=== PATIENT | male | born 1940 | race Caucasian/White ===

== ENCOUNTER 2017-12-22 14:29 | Inpatient (IN) | payer OTHER ==
[~2017-12-22] VITALS: Ht 180.3 cm; Wt 55.0 kg
[~2017-12-22 14:29] MED LIST: ASPIRIN EC81 M1 PO; Benadryl PO; LIPITOR40 M1 PO; PLAVIX 75MG TAB75 MG PO; VALIUM5 M1 PO; VICODIN 500 MG-1 TAB PO
--- NOTE | 2017-12-22 16:12 | RADIOLOGY REPORT ---
EXAMINATION: XR CHEST CLINICAL INFORMATION: Cough and fever. Shortness of breath. COMPARISON: Chest x-ray 02/23/2017, 2017. CT chest 11/03/2017, 04/11/2017 TECHNIQUE: 2 views of the chest were obtained. FINDINGS: There is severe emphysematous changes of lung. There is chronic scarring with deformity of the parenchyma likely at the left upper lobe and left lower lobe similar prior studies. There is a geographic area of patchy increased opacity in the right mid and lower lung new since prior exam consistent with an acute infiltrate. There is a small right pleural effusion blunting the posterior costophrenic angle. There is chronic blunting of the posterior lateral left costophrenic angle IMPRESSION: 1. Severe emphysematous changes of lung. 2. Acute patchy infiltrate in the right mid and lower lung. 3. Small right pleural effusion.
[2017-12-22 16:57] LABS: ABSOLUTE BASOPHIL COUNT 0.1 /CUMM (0.0-0.2); ABSOLUTE EOSINOPHIL COUNT 0.2 /CUMM (0.0-0.7); ABSOLUTE GRANULOCYTE CT 9.3 /CUMM (1.4-6.5); ABSOLUTE LYMPH COUNT 1.2 /CUMM (1.2-3.4); ABSOLUTE MONOCYTE COUNT 0.3 /CUMM (0.10-0.60); BASOPHIL % 0.6 % (0.0-2.0); EOSINOPHIL % 1.9 % (0-5); GRANULOCYTE % 83.5 % (42.2-75.2); HEMATOCRIT 46.7 % (42-52); MEAN CORPUSCULAR HGB 29.9 PG (27.0-31.0); MEAN CORPUSCULAR HGB CONC 32.9 G/DL (33.0-37.0); MEAN PLATELET VOLUME 7.9 FL (7.4-10.4); PLATELET COUNT 480 /CUMM (130-400); RBC DISTRIBUTION WIDTH 13.4 % (11.5-14.5); RED BLOOD CELL CT 5.13 /CUMM (4.70-6.10); WHITE BLOOD CELL COUNT 11.2 /CUMM (4.8-10.8)
--- NOTE | 2017-12-22 17:04 | ED DYSPNEA/ASTHMA COMPLAINT ---
History of Present Illness General Chief Complaint: General Adult Stated Complaint: SOB FEVER / flu Source: patient Exam Limitations: no limitations Vital Signs & Intake/Output Vital Signs & Intake/Output Vital Signs Date Time Temp Pulse Resp B/P B/P Pulse O2 O2 Flow FiO2 Mean Ox Delivery Rate 12/23 0652 97.6 65 20 100/52 94 Nasal 1.5L Cannula 12/23 0000 96 Nasal 2.0L Cannula 12/22 2204 97.9 70 20 124/70 96 12/22 2134 96 Nasal 2.0L Cannula 12/22 2112 97.1 73 18 124/80 90 Room Air Room Air 12/22 2004 Nasal 2.0L Cannula 12/22 1749 98.4 20 18 135/84 95 Nasal 2.0L Cannula 12/22 1635 94 Room Air 12/22 1456 98.6 18 18 133/89 94 Room Air ED Intake and Output 12/23 0000 12/22 1200 Intake Total 555 Output Total Balance 555 Intake, IV 75 Intake, Oral 480 Patient 121 lb Weight Weight Bed scale Measurement Method Allergies Coded Allergies: Penicillins (HIVES 08/07/17) Reconcile Medications Acetaminophen/Hydrocodone Bi (Vicodin 500 MG-5 MG) 1 TAB TAB 1 TAB PO Q4-6 PRN PAIN Aspirin E.c. (Ecotrin) 325 MG TAB 1 TAB PO DAILY HEART HEALTH (Reported) Atorvastatin Calcium (Lipitor) 40 MG TABLET 2 TAB PO DAILY CHOLESTEROL ( Reported) [Benadryl] 25 MG TAB 25 MG PO Q6P PRN ITCHING Clopidogrel Bisulfate (Plavix) 75 MG TABLET 1 TAB PO DAILY CARDIAC STENT ( Reported) Diazepam (Valium) 5 MG TABLET 1 TAB PO Q4-6 PRN PRN SPASMS Triage Note: 77 YO MALE TO TRIAGE C/O COUGH AND CHEST CONGESTION WITH YELLOW SPUTUM. HX OF LUNG CANCER, STATES "I ALWAYS HAVE TROUBLE BREATHING" PT +SMOKER. RA SATS 94%. ALCO S/O CHILLS ON/OFF AT HOME, AFEBRILE. MASK APPLIED. FLU SWAB OBTAINED AND SENT Triage Nurses Notes Reviewed? yes Onset: Abrupt Duration: week(s): (2), constant, continues in ED, getting worse Timing: single episode today Severity: moderate, severe Prior Episodes/Possible Cause: occasional episodes HPI: 77 year old male past medical history of coronary artery disease, hyperlipidemia , hypertension, lung cancer and COPD presents for evaluation of cough, congestion, fevers and shortness of breath. Patient states symptoms have been present for 2 weeks getting worse. Cough is productive of yellow sputum worse at night causing difficulty sleeping. He reports shortness of breath on exertion that somewhat improved at rest. He is occurring every day smoker. He denies any chest pain or hemoptysis. He's been using his inhalers without any improvement. He reports subjective signs of fever. No nausea vomiting or diarrhea. (Julio César Garcia) Past History Travel History Traveled to [place] past 21 day No Medical History Any Pertinent Medical History? 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 No (Julio César Garcia) Review of Systems Review of Systems Constitutional: Reports: fever, malaise, weakness. EENTM: Reports: no symptoms. Respiratory: Reports: see HPI, cough, short of breath, sputum production, wheezing. Cardiovascular: Reports: no symptoms. GI: Reports: no symptoms. Genitourinary: Reports: no symptoms. Musculoskeletal: Reports: no symptoms. Skin: Reports: no symptoms. Neurological/Psychological: Reports: no symptoms. Hematologic/Endocrine: Reports: no symptoms. Immunologic/Allergic: Reports: no symptoms. All Other Systems: Reviewed and Negative (Julio César Garcia) Physical Exam Physical Exam General Appearance: no apparent distress, alert, awake, thin Head: atraumatic, normal appearance Eyes: Bilateral: normal appearance, PERRL, EOMI. Ears, Nose, Throat: normal pharynx, normal ENT inspection, hearing grossly normal Neck: normal inspection, supple, full range of motion Respiratory: chest non-tender, no respiratory distress, crackles (rll), rhonchi, wheezing Cardiovascular: regular rate/rhythm, normal peripheral pulses Peripheral Pulses: 2+ radial (R), 2+ radial (L) Gastrointestinal: normal bowel sounds, soft, non-tender, no organomegaly Extremities: normal inspection, normal range of motion, no edema Neurologic/Psych: no motor/sensory deficits, awake, alert, oriented x 3, normal gait Skin: intact, normal color, warm/dry Lymphatic: no anterior cervical melly Core Measures ACS in differential dx? No CVA/TIA Diagnosis No Sepsis Present: No Sepsis Focused Exam Completed? No (Julio César Garcia) Progress Differential Diagnosis: asthma, AMI, bronchitis, CHF, COPD, pulmonary embolism, pneumonia Plan of Care: Orders Procedure Date/time Status Heart Healthy Diet 12/23 B Active CBC WITHOUT DIFFERENTIAL 12/23 06 Active BASIC ELECTROLYTES PLUS BUN&CR 12/23 06 Active Vital Signs 12/22 2122 Active Teach/Educate 12/22 2122 Active Pain Treatment and Response 12/22 2122 Active Nutritional Intake, Monitor 12/22 2122 Active Isolation 12/22 2122 Active Intake & Output 12/22 2122 Active Patient Care Conference 12/22 2122 Active Activity/Ambulation 12/22 2122 Active Add-on Test (ER Only) 12/22 2025 Active RT: Evaluation 12/22 2003 Active LACTIC ACID 12/22 1927 Complete STREP PNEUMO URINARY ANTIGEN 12/22 190 Complete LEGIONELLA URINARY ANTIGEN 12/22 1908 Complete LOWER RESPIRATORY CULTURE 12/22 1908 Active Pathway - chart 12/22 1904 Active TRC EVALUATION (GEN) 12/22 1903 Complete OXYGEN SETUP (GEN) 12/22 1903 Complete Saline Lock 12/22 1903 Active Pathway - chart 12/22 1903 Active House Staff 12/22 1903 Active Patient Data 12/22 1851 Active ED Holding Orders 12/22 1845 Active Admit to inpatient 12/22 1845 Active Vital Signs 12/22 1845 Active Code Status 12/22 1845 Active LACTIC ACID 12/22 1627 Complete D-DIMER 12/22 1627 Complete EKG 12/22 1627 Active Intake & Output 12/22 1624 Active BLOOD CULTURE 12/22 1615 Active URINALYSIS 12/22 1615 Complete TROPONIN LEVEL 12/22 1615 Complete COMPREHENSIVE METABOLIC PANEL 12/22 1615 Complete CBC WITHOUT DIFFERENTIAL 12/22 1615 Complete RAPID VIRAL INFLUENZA A 12/22 1455 Complete THERAPIST ORDERS 12/22 UNK Complete VTE Mechanical Prophylaxis 12/22 UNK Active Current Medications Sig/Nadya Start time Last Medication Dose Stop Time Status Admin Azithromycin 500 MG Q24H 12/23 1700 AC (Zithromax) Sodium Chloride 250 ML (Normal Saline 0.9%) Ceftriaxone Sodium 1,000 MG DAILY@1700 12/23 1700 AC (Rocephin) Aspirin Buffered 325 MG DAILY 12/23 1000 AC (Ecotrin) Atorvastatin Calcium 80 MG DAILY 12/23 1000 AC (Lipitor) Enoxaparin Sodium 40 MG DAILY 12/23 1000 AC (Lovenox) Acetaminophen 1,000 MG Q6 12/22 2359 AC 12/23 (Ofirmev) 0531 Benzocaine/Menthol 1 SYLVIA Q2P PRN 12/22 2215 AC 12/23 (Chloraseptic 0531 Lozenges) Albuterol Sulfate 3 ML TID 12/22 2200 AC (Proventil) Oxycodone/ 2 TAB Q12 PRN 12/22 191 AC Acetaminophen (Percocet) Sodium Chloride 1,000 ML Q13H 12/22 191 AC 12/22 (Normal Saline 0.9%) 12/23 0814 2128 Laboratory Tests 12/23/17 0700: Sodium Pending, Potassium Pending, Chloride Pending, Carbon Dioxide Pending, Anion Gap Pending, BUN Pending, Creatinine Pending, BUN/Creatinine Ratio Pending , CBC w Diff Pending, WBC Pending, RBC Pending, Hgb Pending, Hct Pending, MCV Pending, MCH Pending, MCHC Pending, RDW Pending, Plt Count Pending, MPV Pending 12/22/17 2345: Lactic Acid 0.8 12/22/17 1655: Urine Color YEL, Urine Clarity CLEAR, Urine pH 6.0, Ur Specific [place] >= 1.030 , Urine Protein NEG, Urine Ketones TRACE H, Urine Nitrite NEG, Urine Bilirubin NEG, Urine Urobilinogen 4.0 H, Ur Leukocyte Esterase NEG, Ur Microscopic SEDIMENT EXAMINED, Urine RBC 1-3, Urine WBC RARE, Ur Epithelial Cells FEW, Urine Bacteria RARE H, Hyaline Casts RARE H, Urine Mucus MOD H, Urine Hemoglobin TRACE-INTACT H, Urine Glucose NEG 12/22/17 1630: Lactic Acid 1.4 12/22/17 1630: Anion Gap 15, Estimated GFR > 60, BUN/Creatinine Ratio 31.4 H, Glucose 85, Calcium 9.5, Total Bilirubin 0.6, AST 25, ALT 39, Alkaline Phosphatase 139 H, Troponin I < 0.01, Total Protein 8.2, Albumin 4.0, Globulin 4.2, Albumin/ Globulin Ratio 1.0 L, D-Dimer High Sensitivty 2366 H, CBC w Diff NO MAN DIFF REQ, RBC 5.13, MCV 91.0, MCH 29.9, MCHC 32.9 L, RDW 13.4, MPV 7.9, Gran % 83.5 H, Lymphocytes % 10.9 L, Monocytes % 3.1, Eosinophils % 1.9, Basophils % 0.6, Absolute Granulocytes 9.3 H, Absolute Lymphocytes 1.2, Absolute Monocytes 0.3, Absolute Eosinophils 0.2, Absolute Basophils 0.1 Microbiology 12/23 0600 LOWER RESP: Respiratory Culture - COLB 12/23 06 LOWER RESP: Gram Stain - COLB 12/22 1705 BLOOD: Blood Culture - RECD 12/22 1655 URINE ROUT: Legionella Antigen - COMP 12/22 165 URINE ROUT: Streptococcus pneumoniae Antigen (M - COMP STREP PNEUMO BACTERIAL AG 12/22 1630 BLOOD: Blood Culture - RECD 12/22 1454 NASOPHARYN: Influenza Virus A & B Rapid Smear - COMP Patient seen and evaluated. On exam he is tachypnic min oxygen saturation 94% on room air. He has diffuse wheezing and rhonchi. DuoNeb ordered. We'll check basic labs. Flu swab negative. Additionally a chest x-ray and d-dimer. Chest x-ray shows right lower lobe pneumonia. D-dimer was elevated but CT is negative for PE. Pneumonia is confirmed on CAT scan. He has a mildly elevated white blood cell count. Due to patient's comorbidities that includes lung cancer status post left lobectomy and COPD patient will be admitted for IV antibiotics to pulmonology consult serial lab serial chest x-rays. Case discussed with Dr. Rosas he agrees. Diagnostic Imaging: Viewed by Me: Radiology Read, CT Scan. Discussed w/RAD: Radiology Read, CT Scan. Radiology Impression: PATIENT: SEAN GARCIA PRESENT AGE : 77 PATIENT ACCOUNT NO: [id number] : 41 LOCATION: [facility] ORDERING PHYSICIAN: Julio César CAVAZOS SERVICE DATE: 12/22/17 EXAM TYPE: CAT - CTA CHEST-PULMONARY EMBOLISM EXAMINATION: CT ANGIOGRAM OF THE CHEST WITH AND WITHOUT CONTRAST (CT PULMONARY ANGIOGRAM FOR PE) CLINICAL INFORMATION: COUGH SOB, TACHYPNEA COMPARISON: Chest x-ray today. CT chest 11/03/2017 TECHNIQUE: Prior to contrast administration, noncontrast localization images were obtained. Subsequently, multidetector volumetric imaging was performed from the thoracic inlet to below the diaphragms following the administration of 89 mL Optiray 350 intravenous contrast. No contrast reaction reported. Sagittal, coronal, and MIP oblique sagittal reformatted images were obtained on the CT workstation, uploaded to PACS, and reviewed. Total exam dose-length product 190.37 mGy-cm. FINDINGS: QUALITY OF STUDY/CONTRAST BOLUS: Satisfactory PULMONARY ARTERIES: No central or segmental pulmonary emboli. THORACIC AORTA: No aneurysm or dissection. LUNG: Severe emphysematous changes of lungs. There is a geographic pneumonic infiltrate with air bronchograms in the right lower lobe corresponding to the density seen on the chest x-ray performed today. No infiltrate in the left lung. The central bronchial airways are open. Postsurgical changes from left upper lobe lobectomy is stable. PLEURA: Small dependent right pleural effusion. Chronic scarring and pleural thickening at left lung base. Pleural thickening at the right posterior lateral hemithorax associated with calcifications is chronic unchanged since prior study. MEDIASTINUM: Normal heart size. No pericardial effusion. No hilar or mediastinal lymphadenopathy. No evidence of septal bowing or right heart strain. Small hiatal hernia. Atherosclerotic vascular wall calcifications of the distal descending aorta and coronary arteries. No pericardial effusion. CHEST WALL/AXILLA: No axillary or internal mammary lymphadenopathy. OSSEOUS STRUCTURES: Degenerative spondylosis of spine with multilevel endplate spurring of the vertebrae. UPPER ABDOMEN: Unremarkable. No reflux of contrast into the hepatic veins to suggest elevated right heart pressures. Small cortical cyst at the mid upper pole of the left kidney. IMPRESSION: 1. No evidence of pulmonary embolism. 2. Severe emphysematous changes of lungs. 3. Patchy parenchymal infiltrate in right lung with small right pleural effusion. VTE: negative DICTATED BY: Alec Shepherd MD DATE/TIME DICTATED:12/22/171757 GRADES 6 THROUGH 8 TEACHER:KADEEM DATE/TIME TRANSCRIBED:12/22/171757, PATIENT: SEAN GARCIA PRESENT AGE: 77 PATIENT ACCOUNT NO: [id number] : 41 LOCATION: [facility] ORDERING PHYSICIAN: Julio César CAVAZOS SERVICE DATE: 12/22/179063 EXAM TYPE: RAD - XRY-CHEST XRAY, TWO VIEWS EXAMINATION: XR CHEST CLINICAL INFORMATION: Cough and fever. Shortness of breath. COMPARISON: Chest x-ray 02/23/2017, 2017. CT chest 11/03/2017, 04/11/2017 TECHNIQUE: 2 views of the chest were obtained. FINDINGS: There is severe emphysematous changes of lung. There is chronic scarring with deformity of the parenchyma likely at the left upper lobe and left lower lobe similar prior studies. There is a geographic area of patchy increased opacity in the right mid and lower lung new since prior exam consistent with an acute infiltrate. There is a small right pleural effusion blunting the posterior costophrenic angle. There is chronic blunting of the posterior lateral left costophrenic angle IMPRESSION: 1. Severe emphysematous changes of lung. 2. Acute patchy infiltrate in the right mid and lower lung. 3. Small right pleural effusion. DICTATED BY: Alec Shepherd MD DATE/TIME DICTATED:12/22/171602 GRADES 6 THROUGH 8 TEACHER:KADEEM DATE/TIME TRANSCRIBED:12/22/171602 CONFIDENTIAL, DO NOT COPY WITHOUT APPROPRIATE AUTHORIZATION. Initial ED EKG: normal sinus rhythm, LVH (Julio César Garcia) Departure Departure Disposition: STILL A PATIENT Condition: Stable Clinical Impression Primary Impression: Pneumonia Qualifiers: Pneumonia type: due to unspecified organism Laterality: right Lung location: lower lobe of lung Qualified Code: J18.1 - Lobar pneumonia, unspecified organism Referrals: Senthil Virk MD (PCP/Family) Departure Forms: Customer Survey General Discharge Information Admission Note Spoke With: Negrito Israel MD Documentation of Exam: Documentation of any treatments & extenuating circumstances including Concerns Regarding Discharge (functional status, medication knowledge or non-compliance, living conditions, etc.) that warrant an admission rather than observation: [IV antibiotics, IV fluids, DuoNeb, pulmonology consult, physical therapy and monitoring of vital signs serial chest x-rays serially labs] (Julio César Garcia) PA/FINANCIAL COMPLIANCE OFFICER Co-Sign Statement Statement: ED Attending supervision documentation- [X] I saw and evaluated the patient. I have also reviewed all the pertinent lab results and diagnostic results. I agree with the findings and the plan of care as documented in the PA's/FINANCIAL COMPLIANCE OFFICER's documentation. X[] I have reviewed the ED Record and agree with the PA's/FINANCIAL COMPLIANCE OFFICER's documentation. [] Additions or exceptions (if any) to the PAs/FINANCIAL COMPLIANCE OFFICER's note and plan are summarized below: [ADMIT TO MEDICINE FOR IV ABX] (Ralph GUZMAN,Juve Dunlap) Critical Care Note Critical Care Note Critical Care Time: non-applicable (Julio César Garcia)
--- NOTE | 2017-12-22 18:09 | CT SCAN REPORT ---
EXAMINATION: CT ANGIOGRAM OF THE CHEST WITH AND WITHOUT CONTRAST (CT PULMONARY ANGIOGRAM FOR PE) CLINICAL INFORMATION: COUGH SOB, TACHYPNEA COMPARISON: Chest x-ray today. CT chest 11/03/2017 TECHNIQUE: Prior to contrast administration, noncontrast localization images were obtained. Subsequently, multidetector volumetric imaging was performed from the thoracic inlet to below the diaphragms following the administration of 89 mL Optiray 350 intravenous contrast. No contrast reaction reported. Sagittal, coronal, and MIP oblique sagittal reformatted images were obtained on the CT workstation, uploaded to PACS, and reviewed. Total exam dose-length product 190.37 mGy-cm. FINDINGS: QUALITY OF STUDY/CONTRAST BOLUS: Satisfactory PULMONARY ARTERIES: No central or segmental pulmonary emboli. THORACIC AORTA: No aneurysm or dissection. LUNG: Severe emphysematous changes of lungs. There is a geographic pneumonic infiltrate with air bronchograms in the right lower lobe corresponding to the density seen on the chest x-ray performed today. No infiltrate in the left lung. The central bronchial airways are open. Postsurgical changes from left upper lobe lobectomy is stable. PLEURA: Small dependent right pleural effusion. Chronic scarring and pleural thickening at left lung base. Pleural thickening at the right posterior lateral hemithorax associated with calcifications is chronic unchanged since prior study. MEDIASTINUM: Normal heart size. No pericardial effusion. No hilar or mediastinal lymphadenopathy. No evidence of septal bowing or right heart strain. Small hiatal hernia. Atherosclerotic vascular wall calcifications of the distal descending aorta and coronary arteries. No pericardial effusion. CHEST WALL/AXILLA: No axillary or internal mammary lymphadenopathy. OSSEOUS STRUCTURES: Degenerative spondylosis of spine with multilevel endplate spurring of the vertebrae. UPPER ABDOMEN: Unremarkable. No reflux of contrast into the hepatic veins to suggest elevated right heart pressures. Small cortical cyst at the mid upper pole of the left kidney. IMPRESSION: 1. No evidence of pulmonary embolism. 2. Severe emphysematous changes of lungs. 3. Patchy parenchymal infiltrate in right lung with small right pleural effusion. VTE: negative
--- NOTE | 2017-12-22 19:13 | History & Physical ---
[facility]171906[facility] General Information and HPI MD Statement: I have seen and personally examined SEAN SMITH and documented this H&P. The patient is a 77 year old M who presented with a patient stated chief complaint of [COUGH, CHEST CONGESTION, SOB]. Source of Information: patient, old records Exam Limitations: no limitations History of Present Illness: Mr. Smith is a 73-year-old white male past medical history of thoracotomy and left upper lobe lobectomy by Dr. Moe secondary to small cell lung cancer at 2014., CAD S/P bare metal stent of the left anterior descending coronary artery on 2013, hyperlipidemia presents to emergency department with a chief complaint of chest congestion, productive cough and shortness of breath. Over the last 2 weeks he felt that he had flu and he was having symptoms of fever, chills, cough productive of greenish yellow phlegm, and shortness of breath, he didn't seek any medical advice however his symptoms became progressively worse so he decided to come to the emergency department for more evaluation, he reports that he noticed excessive sore shortness of breath with short distance, he used to walk for long distances without problems but the last 2 days even walking throughout the room cause him feeling winded, he also has left sided sharp pain aggravated with cough and lying on the left side with no radiation, he measured his temperature at home and MAXIMUM TEMPERATURE was 102. Allergies/Medications Allergies: Coded Allergies: Penicillins (HIVES 08/07/17) Home Med list Acetaminophen/Hydrocodone Bi (Vicodin 500 MG-5 MG) 1 TAB TAB 1 TAB PO Q4-6 PRN PAIN Aspirin E.c. (Ecotrin) 325 MG TAB 1 TAB PO DAILY HEART HEALTH (Reported) Atorvastatin Calcium (Lipitor) 40 MG TABLET 2 TAB PO DAILY CHOLESTEROL ( Reported) [Benadryl] 25 MG TAB 25 MG PO Q6P PRN ITCHING Clopidogrel Bisulfate (Plavix) 75 MG TABLET 1 TAB PO DAILY CARDIAC STENT ( Reported) Diazepam (Valium) 5 MG TABLET 1 TAB PO Q4-6 PRN PRN SPASMS Past History Travel History Traveled to [place] past 21 day No Medical History Neurological: NONE EENT: NONE Cardiovascular: hyperlipidemia, CARDIAC STENT Respiratory: NONE Gastrointestinal: NONE Hepatic: NONE Renal: NONE Musculoskeletal: HIP FX Psychiatric: NONE Endocrine: NONE Blood Disorders: NONE 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 Cardiovascular: Reports: no symptoms. Respiratory: Reports: cough, short of breath, sputum production. GI: Reports: no symptoms. Genitourinary: Reports: no symptoms. Musculoskeletal: Reports: no symptoms. Skin: Reports: no symptoms. Neurological/Psychological: Reports: no symptoms. Hematologic/Endocrine: Reports: no symptoms. Immunologic/Allergic: Reports: no symptoms. All Other Systems: Reviewed and Negative Exam & Diagnostic Data Last 24 Hrs of Vital Signs/I&O Vital Signs Date Time Temp Pulse Resp B/P B/P Pulse O2 O2 Flow FiO2 Mean Ox Delivery Rate 12/22 1635 94 Room Air 12/22 1456 98.6 18 18 133/89 94 Room Air Intake & Output 12/22 1600 12/22 0800 12/22 0000 Intake Total Output Total Balance Patient 132 lb Weight Weight Reported by Patient Measurement Method Assessment/Plan Assessment: 77-year-old man with a history of non-small cell lung cancer status post lobectomy at 2014, coronary artery disease status post BMS for left descending artery, and hyperlipidemia presented to emergency department with chest congestion productive cough and shortness of breath admitted for community- acquired pneumonia. The patient has a [id number]-[id number] smoking history. Currently smokes 3 cigarettes a day Vitals, examination as above ALLERGIES: Penicillin. MEDICATIONS: See CMR. Last echocardiogram at March 2017: Normal global left ventricular size, wall thickness, systolic function with no obvious regional wall motion abnormalities. Left ventricular ejection fraction is estimated at >65 %. Abnormal relaxation filling pattern of the left ventricle for age (stage 1 diastolic dysfunction). The left atrium is normal in size. The mitral valve leaflets are mildly to moderately thickened with good excursion.There is mild prolapse of the posterior leaflet of the mitral valve. Mild mitral regurgitation. Diffuse thickening (sclerosis) of the aortic valve cusps without reduced excursion. No aortic stenosis. There is mild tricuspid regurgitation. Pulmonary artery systolic pressure is upper normal. The ascending aorta is upper limits of normal in diameter. LABORATORIES: WBC: 11.2, Hemoglobin 15.3, hematocrit 46.7, Plt: 480, lymphocyte 10% ,BUN:12 Alk.phophatase:139, D.dimer: 2366 UA: TRACE ketone, urine urobilinogen: 4, +ve urine Hgb, rare cast and bacteria CXR: 1. Severe emphysematous changes of lung. 2. Acute patchy infiltrate in the right mid and lower lung. 3. Small right pleural effusion. CTA: 1. No evidence of pulmonary embolism. 2. Severe emphysematous changes of lungs. 3. Patchy parenchymal infiltrate in right lung with small right pleural effusion. VTE: negative Assessment: -Community-acquired pneumonia -History of non-small cell lung cancer status post lobectomy -History of CAD status post stent -Thrombocytosis, lymphocytopenia -Hyperlipidemia RECOMMENDATION: * Will admit the patient to general medicine floor * He received IV ceftriaxone, azithromycin at the emergency department would continue with that * Blood culture sent at the emergency department will follow-up on that * We'll send sputum culture, urine Legionella, urine strep antigen * TRC/NEBS * We'll hydrate him with IV normal saline (1 bag) * Pulmonary consult at a.m. * Flu swab was negative at the emergency department DVT prophylaxis Lovenox Full code As Ranked By This Provider Problem List: 1. Pneumonia Qualifiers Pneumonia type: due to unspecified organism Laterality: right Lung location: lower lobe of lung Qualified Code: J18.1 - Lobar pneumonia, unspecified organism Core Measures/Misc (07/23) Acute Coronary Syndrome ACS Diagnosis: No Congestive Heart Failure Congestive Heart Failure Diagnosis No Cerebrovascular Accident CVA/TIA Diagnosis: No VTE (View Protocol) VTE Risk Factors Acute Medical Illness No Mechanical VTE Prophylaxis d/t N/A MechProphylax Ordered No VTE Pharm Prophylaxis d/t NA PharmProphylax ordered Sepsis (View protocol) Sepsis Present: No Resident Review Statement Resident Statement: PATIENT ADMITTED BY RESIDENT Negrito Israel 12/23/17 0535: Attending MD Review Statement Attending Statement Attending MD Statement: examined this patient, discuss w/resident/PA/WOOD FENCE ERECTOR, agreed w/resident/PA/WOOD FENCE ERECTOR, reviewed EMR data (avail), reviewed images, amended to note Attending Assessment/Plan: CC: cough and expectoration PMH: CAD S/P BMS in LAD, COPD, 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 Initially it started with upper respiratory symptoms with nasal congestion, runny nose, eventually progressed to cough which was getting worse and worse with yellow colored sputum production. Patient had been feeling fever and chills intermittently and was getting sweating significantly. Maximum fever at home was 102. He endorses right -sided chest pain with deep breathing and coughing. Patient tried to do all the home remedies for his URI and yyqu-pqc-hypcfji medications but eventually when the cough and expectoration was getting worse he came to ER. He did not take any antibiotics in the last 2 weeks. He denies any headache, syncope or presyncope, vomiting or diarrhea, abdominal pain, chest tightness, dyspnea on exertion, leg swelling. Vitals: T max 98.6, pulse 70s, RR 18, blood pressure 133/89, saturating well on 2 L nasal cannula On exam: A O 3, cooperative, no acute distress, neck supple, JVD normal, no lymphadenopathy, mucosa dry, no focal neurological deficit except chronic left lower extremity weakness 4-/5, no dependent edema, no obvious skin rashes or inflammation CVS: S1-S2, RRR. RS: Significant crackles on right base. Abdomen: Soft, NT, ND, bowel sounds present. CTA chest: 1. No evidence of pulmonary embolism. 2. Severe emphysematous changes of lungs. 3. Patchy parenchymal infiltrate in right lung with small right pleural effusion. Assessment and plan 77-year-old male with medical history significant for CAD S/P stent, lung cancer S/P left lobectomy no radiation or chemotherapy, COPD presented in ER for progressive worsening of cough, expectoration and shortness of breath. All his symptoms are very typical of community acquired pneumonia which is confirmed on chest x-ray and CT scan. Patient has mild leukocytosis with left shift, normal lactic acid. + Community-acquired pneumonia + History of CAD S/P BMS in LAD, COPD, chronic left lower extremity weakness - Admit to general medicine - Try to wean off oxygen - IV azithromycin and ceftriaxone - TRC nebulization with albuterol and ipratropium scheduled and when necessary - Mucinex scheduled twice a day - Continue rest of the home medications - Adequate pain control - DVT prophylaxis - Urine strep and Legionella - Follow blood culture and urine culture - DVT prophylaxis - Pain control
[2017-12-22 22:04] VITALS: BP 124/70
--- NOTE | 2017-12-23 05:36 | Admission Certification ---
Admission Certification Certification Statement - As attending physician, I certify that at the time of - admission, based on clinical presentation, severity of - symptoms, need for further diagnostic testing and - therapeutic interventions, and risk of adverse outcomes - without in-hospital treatment, in my clinical assessment, - this patient requires an acute hospital stay for a minimum - of two nights or longer. I have also considered psychsocial - factors such as support system, advanced age, financial - issues, cognitive issues, and failed out-patient treatments, - past re-admission history, safety of patient, and lack of - compliance as applicable. Specific rationale supporting this admission is: Community-acquired pneumonia
[2017-12-23 06:52] VITALS: BP 100/52
--- NOTE | 2017-12-23 09:25 | PN- Housestaff ---
Sonido GUZMAN,Olman 12/23/17 0924: Subjective Follow-up For: Aspiration pneumonia Subjective: seen and exmained at bedside. Report slight improvement in his breathing, still on 2-3 o2 suplementation. Denies fever/chills,chest pain,palpitations. Review of Systems Constitutional: Reports: see HPI. Objective Last 24 Hrs of Vital Signs/I&O Vital Signs Date Time Temp Pulse Resp B/P B/P Pulse O2 O2 Flow FiO2 Mean Ox Delivery Rate 12/23 0959 95 Nasal 2.0L Cannula 12/23 0652 97.6 65 20 100/52 94 Nasal 1.5L Cannula 12/23 0000 96 Nasal 2.0L Cannula 12/22 2204 97.9 70 20 124/70 96 12/22 2134 96 Nasal 2.0L Cannula 12/22 2112 97.1 73 18 124/80 90 Room Air Room Air 12/22 2005 Nasal 2.0L Cannula 12/22 1749 98.4 20 18 135/84 95 Nasal 2.0L Cannula 12/22 1635 94 Room Air 12/22 1456 98.6 18 18 133/89 94 Room Air Intake & Output 12/23 1600 12/23 0800 12/23 0000 Intake Total 540 555 Output Total 200 Balance 340 555 Intake, IV 300 75 Intake, Oral 240 480 Output, Urine 200 Patient 54.998 kg Weight Weight Bed scale Measurement Method Physical Exam General Appearance: Alert, Oriented X3, Cooperative Assessment/Plan Assessment: 77-year-old man with a history of non-small cell lung cancer status post lobectomy at 2014, coronary artery disease status post BMS for left descending artery, and hyperlipidemia presented to emergency department with chest congestion productive cough and shortness of breath admitted for community- acquired pneumonia. The patient has a 28-gtzs-proq smoking history. Currently smokes 3 cigarettes a day Vitals, examination as above ALLERGIES: Penicillin. MEDICATIONS: See CMR. Last echocardiogram at March 2017: Normal global left ventricular size, wall thickness, systolic function with no obvious regional wall motion abnormalities. Left ventricular ejection fraction is estimated at >65 %. Abnormal relaxation filling pattern of the left ventricle for age (stage 1 diastolic dysfunction). The left atrium is normal in size. The mitral valve leaflets are mildly to moderately thickened with good excursion.There is mild prolapse of the posterior leaflet of the mitral valve. Mild mitral regurgitation. Diffuse thickening (sclerosis) of the aortic valve cusps without reduced excursion. No aortic stenosis. There is mild tricuspid regurgitation. Pulmonary artery systolic pressure is upper normal. The ascending aorta is upper limits of normal in diameter. LABORATORIES: WBC: 11.2, Hemoglobin 15.3, hematocrit 46.7, Plt: 480, lymphocyte 10% ,BUN:12 Alk.phophatase:139, D.dimer: 2366 UA: TRACE ketone, urine urobilinogen: 4, +ve urine Hgb, rare cast and bacteria CXR: 1. Severe emphysematous changes of lung. 2. Acute patchy infiltrate in the right mid and lower lung. 3. Small right pleural effusion. CTA: 1. No evidence of pulmonary embolism. 2. Severe emphysematous changes of lungs. 3. Patchy parenchymal infiltrate in right lung with small right pleural effusion. VTE: negative Assessment: -Community-acquired pneumonia -History of non-small cell lung cancer status post lobectomy -History of CAD status post stent -Thrombocytosis, lymphocytopenia -Hyperlipidemia RECOMMENDATION: o2 supplemtatio to keep sats above 88% * Continue IV ceftriaxone for strep positive, stop azithromycin * f/u Blood culture sputum culture, flu swab negative * TRC/NEBS * s/p 1 L hydration * awaiting pulm reccomendation DVT prophylaxis Lovenox Full code Problem List: 1. Pneumonia Pain Ratin Pain Location: none Pain Goal: Remain pain free Pain Plan: per pain pathway Tomorrow's Labs & Rationales: cbc bep Alton GUZMAN,Paul 12/23/17 1619: Attending MD Review Statement Attending Statement Attending MD Statement: examined this patient, discuss w/resident/PA/RUG DESIGNER, agreed w/resident/PA/RUG DESIGNER, reviewed EMR data (avail) Attending Assessment/Plan: Admitted overnightwith RLL pneumonia with S.pneumo antigen positive, doing well today, comfortable, afebrile, vitals stable. Plan - Continue on general medicine - Continue Ceftriaxone - Discontinue Azithromycin - Follow cultures - Continue home medications - DVT PPx
[2017-12-23 10:49] LABS: ABSOLUTE BASOPHIL COUNT 0 /CUMM (0.0-0.2); ABSOLUTE EOSINOPHIL COUNT 0.4 /CUMM (0.0-0.7); ABSOLUTE LYMPH COUNT 1.3 /CUMM (1.2-3.4); ABSOLUTE MONOCYTE COUNT 0.3 /CUMM (0.10-0.60); BASOPHIL % 0.3 % (0.0-2.0); EOSINOPHIL % 4.5 % (0-5); GRANULOCYTE % 77.5 % (42.2-75.2); MEAN CORPUSCULAR HGB 30.2 PG (27.0-31.0); MEAN CORPUSCULAR HGB CONC 33.2 G/DL (33.0-37.0); MEAN CORPUSCULAR VOLUME 90.9 FL (80.0-94.0); MEAN PLATELET VOLUME 7.6 FL (7.4-10.4); PLATELET COUNT 385 /CUMM (130-400); RBC DISTRIBUTION WIDTH 13.1 % (11.5-14.5); RED BLOOD CELL CT 3.94 /CUMM (4.70-6.10)
[2017-12-23 10:55] LABS: HEMATOCRIT 35.8 % (42-52)
[2017-12-23 14:58] VITALS: BP 118/62
--- NOTE | 2017-12-23 19:27 | Cons- Pulmonary ---
See Addendum General Information and HPI Consulting Request Date of Consult: 12/23/17 Requested By: MEd team History of Present Illness: Mr. Smith is a 73-year-old white male past medical history of thoracotomy and left upper lobe lobectomy by Dr. Moe secondary to small cell lung cancer at 2014., CAD S/P bare metal stent of the left anterior descending coronary artery on 2013, hyperlipidemia presents to emergency department with a chief complaint of chest congestion, productive cough and shortness of breath. Over the last 2 weeks he felt that he had flu and he was having symptoms of fever, chills, cough productive of greenish yellow phlegm, and shortness of breath, he didn't seek any medical advice however his symptoms became progressively worse so he decided to come to the emergency department for more evaluation, he reports that he noticed excessive sore shortness of breath with short distance, he used to walk for long distances without problems but the last 2 days even walking throughout the room cause him feeling winded, he also has left sided sharp pain aggravated with cough and lying on the left side with no radiation, he measured his temperature at home and MAXIMUM TEMPERATURE was 102. Allergies/Medications Allergies: Coded Allergies: Penicillins (HIVES 08/07/17) Home Med List: Acetaminophen/Hydrocodone Bi (Vicodin 500 MG-5 MG) 1 TAB TAB 1 TAB PO Q4-6 PRN PAIN Aspirin E.c. (Ecotrin) 325 MG TAB 1 TAB PO DAILY HEART HEALTH (Reported) Atorvastatin Calcium (Lipitor) 40 MG TABLET 2 TAB PO DAILY CHOLESTEROL ( Reported) [Benadryl] 25 MG TAB 25 MG PO Q6P PRN ITCHING Clopidogrel Bisulfate (Plavix) 75 MG TABLET 1 TAB PO DAILY CARDIAC STENT ( Reported) Diazepam (Valium) 5 MG TABLET 1 TAB PO Q4-6 PRN PRN SPASMS Review of Systems Comments Constitutional: Reports: chills. Cardiovascular: Reports: no symptoms. Respiratory: Reports: cough, short of breath, sputum production. GI: Reports: no symptoms. Genitourinary: Reports: no symptoms. Musculoskeletal: Reports: no symptoms. Skin: Reports: no symptoms. Neurological/Psychological: Reports: no symptoms. Hematologic/Endocrine: Reports: no symptoms. Immunologic/Allergic: Reports: no symptoms. 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 Home Services at Home: None Smoking Status: Current Everyday Smoker Exam & Diagnostic Data Last 24 Hrs of Vital Signs/I&O Vital Signs Date Time Temp Pulse Resp B/P B/P Pulse O2 O2 Flow FiO2 Mean Ox Delivery Rate 12/23 1458 98.2 68 20 118/62 96 12/23 0959 95 Nasal 2.0L Cannula 12/23 0652 97.6 65 20 100/52 94 Nasal 1.5L Cannula 12/23 0000 96 Nasal 2.0L Cannula 12/22 2204 97.9 70 20 124/70 96 12/22 2134 96 Nasal 2.0L Cannula 12/22 2112 97.1 73 18 124/80 90 Room Air Room Air 12/22 2004 Nasal 2.0L Cannula Intake & Output 12/23 1600 12/23 0800 12/23 0000 Intake Total 540 555 Output Total 200 Balance 340 555 Intake, IV 300 75 Intake, Oral 240 480 Output, Urine 200 Patient 121 lb Weight Weight Bed scale Measurement Method Last 48 Hrs of Labs/Branden: Laboratory Tests 12/23/17 1040: RBC 3.94 L, MCV 90.9, MCH 30.2, MCHC 33.2, RDW 13.1, MPV 7.6, Gran % 77.5 H, Lymphocytes % 13.9 L, Monocytes % 3.8, Eosinophils % 4.5, Basophils % 0.3, Absolute Granulocytes 7.0 H, Absolute Lymphocytes 1.3, Absolute Monocytes 0.3, Absolute Eosinophils 0.4, Absolute Basophils 0 12/23/17 0700: Anion Gap 9, Estimated GFR > 60, BUN/Creatinine Ratio 33.3 H 12/22/17 2345: Lactic Acid 0.8 12/22/17 1655: Urine Color YEL, Urine Clarity CLEAR, Urine pH 6.0, Ur Specific Kamrar >= 1.030 , Urine Protein NEG, Urine Ketones TRACE H, Urine Nitrite NEG, Urine Bilirubin NEG, Urine Urobilinogen 4.0 H, Ur Leukocyte Esterase NEG, Ur Microscopic SEDIMENT EXAMINED, Urine RBC 1-3, Urine WBC RARE, Ur Epithelial Cells FEW, Urine Bacteria RARE H, Hyaline Casts RARE H, Urine Mucus MOD H, Urine Hemoglobin TRACE-INTACT H, Urine Glucose NEG 12/22/17 1630: Lactic Acid 1.4 12/22/17 1630: Anion Gap 15, Estimated GFR > 60, BUN/Creatinine Ratio 31.4 H, Glucose 85, Calcium 9.5, Total Bilirubin 0.6, AST 25, ALT 39, Alkaline Phosphatase 139 H, Troponin I < 0.01, Total Protein 8.2, Albumin 4.0, Globulin 4.2, Albumin/ Globulin Ratio 1.0 L, D-Dimer High Sensitivty 2366 H, CBC w Diff NO MAN DIFF REQ, RBC 5.13, MCV 91.0, MCH 29.9, MCHC 32.9 L, RDW 13.4, MPV 7.9, Gran % 83.5 H, Lymphocytes % 10.9 L, Monocytes % 3.1, Eosinophils % 1.9, Basophils % 0.6, Absolute Granulocytes 9.3 H, Absolute Lymphocytes 1.2, Absolute Monocytes 0.3, Absolute Eosinophils 0.2, Absolute Basophils 0.1 Microbiology 12/22 165 URINE ROUT: Legionella Antigen - COMP 12/22 165 URINE ROUT: Streptococcus pneumoniae Antigen (M - COMP STREP PNEUMO BACTERIAL AG 12/22 1454 NASOPHARYN: Influenza Virus A & B Rapid Smear - COMP Assessment/Plan Impression/Plan: CTA: 1. No evidence of pulmonary embolism. 2. Severe emphysematous changes of lungs. 3. Patchy parenchymal infiltrate in right lung with small right pleural effusion. VTE: negative Sleeping when I saw him RENÉ EOMI chest mild wheezing cvs s1s2 abd soft trace edema IMPRESSION 77-year-old male with medical history significant for CAD S/P stent, lung cancer S/P left lobectomy COPD presented in ER for progressive worsening of cough, expectoration and shortness of breath. ISSUES Severe COPD with ACOPDE PNeumonia with a small parapneumonic effusion IHD with previous cad PFT shows sieverely reduced DLCO sugg severe emphysema CHronic left lower ext weakness REC Sputum culture CONt current abx Rpt cxr to eval his parapneumonic effusion in 2 days Watch for narcotic effect Cont all his other meds Keep sat at 92 Will follow Consult Acknowledgment - Thank you for your consult request.
[2017-12-23 21:59] VITALS: BP 104/60
[2017-12-24 07:04] VITALS: BP 98/54
--- NOTE | 2017-12-24 08:13 | PN- Housestaff ---
Rajesh GUZMAN,Baltazar 12/24/17 0812: Subjective Follow-up For: pneumonia Subjective: significant dyspnea and diaphoretic with exertion denies any chest pain Review of Systems Constitutional: Reports: see HPI. Objective Last 24 Hrs of Vital Signs/I&O Vital Signs Date Time Temp Pulse Resp B/P B/P Pulse O2 O2 Flow FiO2 Mean Ox Delivery Rate 12/24 0912 94 Nasal 2.0L Cannula 12/24 0800 95 Nasal 2.0L Cannula 12/24 0704 97.6 52 20 98/54 94 Nasal 1.0L Cannula 12/24 0000 Nasal 2.0L Cannula 12/23 2159 98.4 63 20 104/60 95 12/23 2039 Nasal 2.0L Cannula 12/23 1458 98.2 68 20 118/62 96 Intake & Output 12/24 1600 12/24 0800 12/24 0000 Intake Total 620 360 Output Total 700 200 Balance -80 160 Intake, IV 260 120 Intake, Oral 360 240 Output, Urine 700 200 Physical Exam General Appearance: Alert, Oriented X3, Cooperative, No Acute Distress Cardiovascular: Regular Rate, Normal S1, Normal S2, No Murmurs Lungs: diffuse rhonchi, diminished air entry, no crackles Abdomen: Normal Bowel Sounds, Soft, No Tenderness, No Masses Extremities: No Clubbing, No Cyanosis, No Edema, Normal Pulses Current Medications: Current Medications Sig/Nadya Start time Last Medication Dose Route Stop Time Status Admin Acetaminophen 1,000 MG Q6 12/22 2359 AC 12/24 IV 0550 Albuterol Sulfate 3 ML TID 12/22 2200 AC 12/24 INH 1416 Aspirin Buffered 325 MG DAILY 12/23 1000 AC 12/24 PO 1128 Atorvastatin Calcium 80 MG DAILY 12/23 1000 AC 12/24 PO 1128 Azithromycin 500 MG Q24H 12/23 1700 DC 12/23 Dextrose/Water 250 ML IV 1629 Benzocaine/Menthol 1 SYLVIA Q2P PRN 12/22 2215 AC 12/24 PO 0550 Ceftriaxone Sodium 1,000 MG DAILY@1700 12/23 1700 AC 12/23 IV 1628 Enoxaparin Sodium 40 MG DAILY 12/23 1000 AC 12/24 SC 1128 Guaifenesin 600 MG Q12 12/23 1000 AC 12/24 PO 1127 Oxycodone/ 2 TAB Q12 PRN 12/22 1915 AC Acetaminophen PO Last 24 Hrs of Lab/Branden Results Last 24 Hrs of Labs/Mics: Laboratory Tests 12/24/17 0728: Anion Gap 9, Estimated GFR > 60, BUN/Creatinine Ratio 18.3, CBC w Diff NO MAN DIFF REQ, RBC 3.81 L, MCV 90.7, MCH 30.1, MCHC 33.2, RDW 13.4, MPV 7.9, Gran % 72.7, Lymphocytes % 16.5 L, Monocytes % 5.9, Eosinophils % 4.5, Basophils % 0.4 , Absolute Granulocytes 6.0, Absolute Lymphocytes 1.4, Absolute Monocytes 0.5, Absolute Eosinophils 0.4, Absolute Basophils 0 Assessment/Plan Assessment: 77 year old man with a history of HLD, NSCLC s/p lobectomy, CAD s/p BMS LAD, and hyperlipidemia presented to emergency department with chest congestion productive cough and shortness of breath admitted for community-acquired pneumonia. Last echocardiogram at March 2017: Normal global left ventricular size, wall thickness, systolic function with no obvious regional wall motion abnormalities. Left ventricular ejection fraction is estimated at >65 %. Abnormal relaxation filling pattern of the left ventricle for age (stage 1 diastolic dysfunction). CXR: 1. Severe emphysematous changes of lung. 2. Acute patchy infiltrate in the right mid and lower lung. 3. Small right pleural effusion. CTA: 1. No evidence of pulmonary embolism. 2. Severe emphysematous changes of lungs. 3. Patchy parenchymal infiltrate in right lung with small right pleural effusion. VTE: negative Assessment: -Community-acquired pneumonia -History of non-small cell lung cancer status post lobectomy -History of CAD status post stent -Thrombocytosis, lymphocytopenia -Hyperlipidemia Titrate supplemental oxygen Strep pneumo urinary antigen positive Discontinue azithromycin Continue ceftriaxone Influenza and blood cultures negative Follow up pulmonology recommendations COPD: TRC eval Symbicort, Breo at home CAD s/p BMS to LAD: Continue aspirin No beta myriam for reactive airway? HLD: Continue statin Heart healthy diet DVT ppx- Lovenox 40mg subcutaneous daily Full code Problem List: 1. Pneumonia 2. lung mass 3. Pulmonary emphysema Pain Ratin Pain Location: n/a Pain Goal: Pain 4 or less Pain Plan: prn Tomorrow's Labs & Rationales: none Neli Dang MD 12/24/17 1504: Attending MD Review Statement Attending Statement Attending MD Statement: examined this patient, discuss w/resident/PA/FILM DEVELOPER, agreed w/resident/PA/FILM DEVELOPER, reviewed EMR data (avail) Attending Assessment/Plan: 77M PMH HTN, NSCLC s/p partial lobectomy, CAD s/p PCI admitted overnight with RLL pneumonia with S.pneumo antigen positive, doing well today, comfortable, afebrile, vitals stable. 1. Streptococcal RLL pneumonia Plan - Continue on general medicine - Continue Ceftriaxone - Discontinue Azithromycin - Follow cultures - Continue home medications - DVT PPx
[2017-12-24 08:16] LABS: ABSOLUTE BASOPHIL COUNT 0 /CUMM (0.0-0.2); ABSOLUTE EOSINOPHIL COUNT 0.4 /CUMM (0.0-0.7); ABSOLUTE LYMPH COUNT 1.4 /CUMM (1.2-3.4); ABSOLUTE MONOCYTE COUNT 0.5 /CUMM (0.10-0.60); BASOPHIL % 0.4 % (0.0-2.0); EOSINOPHIL % 4.5 % (0-5); GRANULOCYTE % 72.7 % (42.2-75.2); HEMATOCRIT 34.5 % (42-52); MEAN CORPUSCULAR HGB 30.1 PG (27.0-31.0); MEAN CORPUSCULAR HGB CONC 33.2 G/DL (33.0-37.0); MEAN CORPUSCULAR VOLUME 90.7 FL (80.0-94.0); MEAN PLATELET VOLUME 7.9 FL (7.4-10.4); PLATELET COUNT 373 /CUMM (130-400); RBC DISTRIBUTION WIDTH 13.4 % (11.5-14.5); RED BLOOD CELL CT 3.81 /CUMM (4.70-6.10); WHITE BLOOD CELL COUNT 8.2 /CUMM (4.8-10.8)
--- NOTE | 2017-12-24 11:08 | PN- Pulmonary ---
Subjective HPI/Critical Care Issues: Doing ok Sleeping Objective Current Medications: Current Medications Sig/Nadya Start time Last Medication Dose Route Stop Time Status Admin Acetaminophen 1,000 MG Q6 12/22 2359 AC 12/24 IV 0550 Albuterol Sulfate 3 ML TID 12/22 2200 AC 12/24 INH 0906 Aspirin Buffered 325 MG DAILY 12/23 1000 AC 12/23 PO 0854 Atorvastatin Calcium 80 MG DAILY 12/23 1000 AC 12/23 PO 0854 Azithromycin 500 MG Q24H 12/23 1700 DC 12/23 Dextrose/Water 250 ML IV 1629 Benzocaine/Menthol 1 SYLVIA Q2P PRN 12/22 2215 AC 12/24 PO 0550 Ceftriaxone Sodium 1,000 MG DAILY@1700 12/23 1700 AC 12/23 IV 1628 Enoxaparin Sodium 40 MG DAILY 12/23 1000 AC 12/23 SC 0856 Guaifenesin 600 MG Q12 12/23 1000 AC 12/23 PO 2106 Oxycodone/ 2 TAB Q12 PRN 12/22 1915 AC Acetaminophen PO Vital Signs & I&O Last 24 Hrs of Vitals and I&O: Vital Signs Date Time Temp Pulse Resp B/P B/P Pulse O2 O2 Flow FiO2 Mean Ox Delivery Rate 12/24 0912 94 Nasal 2.0L Cannula 12/24 0800 95 Nasal 2.0L Cannula 12/24 0704 97.6 52 20 98/54 94 Nasal 1.0L Cannula 12/24 0000 Nasal 2.0L Cannula 12/23 2159 98.4 63 20 104/60 95 12/23 2039 Nasal 2.0L Cannula 12/23 1458 98.2 68 20 118/62 96 Intake & Output 12/24 1600 12/24 0800 12/24 0000 Intake Total 620 360 Output Total 700 200 Balance -80 160 Intake, IV 260 120 Intake, Oral 360 240 Output, Urine 700 200 Impression/Plan Impression/Plan Impression/Plan: RENÉ EOMI chest mild wheezing cvs s1s2 abd soft trace edema IMPRESSION 77-year-old male with medical history significant for CAD S/P stent, lung cancer S/P left lobectomy COPD presented in ER for progressive worsening of cough, expectoration and shortness of breath. ISSUES Severe COPD with ACOPDE PNeumonia with a small parapneumonic effusion WIth positive strep pneumonia antigen IHD with previous cad PFT shows sieverely reduced DLCO sugg severe emphysema CHronic left lower ext weakness REC COnt ceftriaxone dc azithro Cont all his other meds Keep sat at 92 Will follow
[2017-12-24 14:43] VITALS: BP 99/62
--- NOTE | 2017-12-24 16:42 | RADIOLOGY REPORT ---
EXAMINATION: XR CHEST CLINICAL INFORMATION: Shortness of breath COMPARISON: 12/22/[address] scan, 12/22/2017 chest x-ray, 11/03/[address] scan and 03/02/2017 chest x-ray TECHNIQUE: 2 views of the chest were obtained. FINDINGS: There are bilateral increased pulmonary interstitial markings. There are opacities in the left lung apex and left lower lobe. There is pulmonary opacity in the right lower lobe, fairly similar to 12/22/2017 chest x-ray. A small right-sided pleural effusion. No pneumothorax. The cardiac size and mediastinal silhouette are unremarkable. IMPRESSION: Severe pulmonary emphysema, right lower lobe airspace disease, left lower lobe opacity and scar and left apical scar. A small right-sided pleural effusion. The x-ray appearance is fairly similar to 12/22/2017 exams. The finding could represent superimposed right lower lobe pneumonia on severe pulmonary emphysema.
[2017-12-24 22:08] VITALS: BP 102/50
[2017-12-25 03:44] VITALS: BP 110/58
--- NOTE | 2017-12-25 06:19 | Event Note ---
Event Note Event Note: Situation: was paged by the nurse at 4:30 because the patient complained of chest tightness, I examined the patient he reports having chest tightness 4/10 in severity now on the right side, nonradiating , not related to breathing. Chest exam was normal with no localized tenderness . Patient received breathing treatment 20 minutes before his complaints. Patient was saturating at 97 on 1.5 L oxygen which is his baseline Background: 77 year old man with a history of HLD, NSCLC s/p lobectomy, CAD s/p BMS LAD, and hyperlipidemia presented to emergency department with chest congestion productive cough and shortness of breath admitted for community-acquired pneumonia. A &R: EKG was ordered and did not show significant changes from previous one. Troponin was 0.02 pt symp improved , will follow up
[2017-12-25 06:42] VITALS: BP 104/52
--- NOTE | 2017-12-25 07:45 | PN- Housestaff ---
See Addendum Subjective Follow-up For: Strep PNA Subjective: No overnight events. Still having coughing but improving SOB. Had some CP this morning, see event note. Thinks it was heart burn. No other complaints. Review of Systems Constitutional: Reports: no symptoms. EENTM: Reports: no symptoms. Cardiovascular: Reports: see HPI. Respiratory: Reports: see HPI. Gastrointestinal: Reports: no symptoms. Genitourinary: Reports: no symptoms. Musculoskeletal: Reports: no symptoms. Skin: Reports: no symptoms. Neurological/Psychological: Reports: no symptoms. Hematologic/Endocrine: Reports: no symptoms. Immunologic/Allergic: Reports: no symptoms. Objective Last 24 Hrs of Vital Signs/I&O Vital Signs Date Time Temp Pulse Resp B/P B/P Pulse O2 O2 Flow FiO2 Mean Ox Delivery Rate 12/25 0642 97.7 65 20 104/52 98 Nasal 2.0L Cannula 12/25 0344 97.8 64 20 110/58 96 Nasal 1.5L Cannula 12/25 0321 96 Nasal 2.0L Cannula 12/25 0000 93 Nasal 1.5L Cannula 12/24 2208 98.3 77 20 102/50 93 12/24 2154 Nasal 2.0L Cannula 12/24 2014 95 Nasal 2.0L Cannula 12/24 1443 98.0 77 19 99/62 94 12/24 0912 94 Nasal 2.0L Cannula 12/24 0800 95 Nasal 2.0L Cannula Intake & Output 12/25 0800 12/25 0000 12/24 1600 Intake Total 480 Output Total 575 Balance -575 480 Intake, Oral 480 Number 0 Bowel Movements Output, Urine 575 Physical Exam General Appearance: Alert, Oriented X3, Cooperative, No Acute Distress Cardiovascular: Regular Rate, Normal S1, Normal S2 Lungs: Crackles Abdomen: Normal Bowel Sounds, Soft, No Tenderness Current Medications: Current Medications Sig/Nadya Start time Last Medication Dose Route Stop Time Status Admin Acetaminophen 1,000 MG Q6 12/22 2359 DC 12/24 IV 0550 Albuterol Sulfate 3 ML TID 12/22 2200 AC 12/25 INH 0308 Aspirin Buffered 325 MG DAILY 12/23 1000 AC 12/24 PO 1128 Atorvastatin Calcium 80 MG DAILY 12/23 1000 AC 12/24 PO 1128 Benzocaine/Menthol 1 SYLVIA Q2P PRN 12/22 2215 AC 12/25 PO 0230 Ceftriaxone Sodium 1,000 MG DAILY@1700 12/23 1700 AC 12/24 IV 1908 Enoxaparin Sodium 40 MG DAILY 12/23 1000 AC 12/24 SC 1128 Guaifenesin 600 MG Q12 12/23 1000 AC 12/24 PO 2005 Oxycodone/ 2 TAB Q12 PRN 12/22 1915 DC Acetaminophen PO Last 24 Hrs of Lab/Branden Results Last 24 Hrs of Labs/Mics: Laboratory Tests 12/25/17 0410: Troponin I 0.02 Assessment/Plan Assessment: 77 year old man with a history of HLD, NSCLC s/p lobectomy, CAD s/p BMS LAD, and hyperlipidemia presented to emergency department with chest congestion productive cough and shortness of breath admitted for community-acquired pneumonia. Problem list: 1. Strepococcus pneumoniae pneumonia 2. Chest pain 3. Xeroderma #Strepococcus pneumoniae pneumonia: Patient recently thought he had the flu and then presented on Monday with shortness of breath and cough. Streptococcus pneumoniae urine antigen was positive. -Continue ceftriaxone, day 4 -Continue guaifenesin -Continue benzocaine/menthol -Continue albuterol -Appreciate pulmonology recommendations #Chest pain: Patient was complaining of chest pain earlier this morning. See event note. EKG and troponin 1 negative. He thinks that he was most likely heartburn. TTE in March 2017 showed normal EF with stage I diastolic dysfunction. 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 -Vitamin A/D ointment #Chronic medical problems: -Continue home atorvastatin and aspirin DVT prophylaxis with enoxaparin Heart healthy diet Full code Problem List: 1. Streptococcus pneumoniae Pain Ratin Pain Location: no Pain Goal: Remain pain free Pain Plan: see a/p Tomorrow's Labs & Rationales: no
--- NOTE | 2017-12-25 10:45 | PN- Pulmonary ---
Subjective HPI/Critical Care Issues: Patient seen and examined this morning. He appears to be doing better however still dyspneic using accessory muscles and on oxygen. Objective Current Medications: Current Medications Sig/Nadya Start time Last Medication Dose Route Stop Time Status Admin Acetaminophen 1,000 MG Q6 12/22 2359 DC 12/24 IV 0550 Albuterol Sulfate 3 ML TID 12/22 2200 AC 12/25 INH 0848 Aspirin Buffered 325 MG DAILY 12/23 1000 AC 12/25 PO 1015 Atorvastatin Calcium 80 MG DAILY 12/23 1000 AC 12/25 PO 1015 Benzocaine/Menthol 1 SYLVIA Q2P PRN 12/22 2215 AC 12/25 PO 0230 Calcium Carbonate 650 MG 4 TIMES/DAY PRN 12/25 0815 AC PO Ceftriaxone Sodium 1,000 MG DAILY@1700 12/23 1700 AC 12/24 IV 1908 Enoxaparin Sodium 40 MG DAILY 12/23 1000 AC 12/25 SC 1015 Guaifenesin 600 MG Q12 12/23 1000 AC 12/25 PO 1015 Oxycodone/ 2 TAB Q12 PRN 12/22 1915 DC Acetaminophen PO Vitamin A/Vitamin D 1 PARMINDER BID 12/25 1010 AC TOP Vital Signs & I&O Last 24 Hrs of Vitals and I&O: Vital Signs Date Time Temp Pulse Resp B/P B/P Pulse O2 O2 Flow FiO2 Mean Ox Delivery Rate 12/25 0800 96 Nasal 1.0L Cannula 12/25 0642 97.7 65 20 104/52 98 Nasal 2.0L Cannula 12/25 0344 97.8 64 20 110/58 96 Nasal 1.5L Cannula 12/25 0321 96 Nasal 2.0L Cannula 12/25 0000 93 Nasal 1.5L Cannula 12/24 2208 98.3 77 20 102/50 93 12/24 2154 Nasal 2.0L Cannula 12/24 2014 95 Nasal 2.0L Cannula 12/24 1443 98.0 77 19 99/62 94 Intake & Output 12/25 1600 12/25 0800 12/25 0000 Intake Total 0 480 Output Total 575 Balance -575 480 Intake, IV 0 Intake, Oral 0 480 Number 0 Bowel Movements Output, Urine 575 Exam Other Physical Findings: Generally - Awake, alert and comfortable without distress Head and neck - normocephalic, atraumatic, EOMI grossly intact Cardiovascular - S1, S2, no murmurs, rubs or gallops Lungs -bilateral scattered rhonchi Abdomen - Bowel sounds positive, soft, non-tender Extremities - without edema Results Last 24 Hrs of Lab Results: Laboratory Tests 12/25/17 0410: Troponin I 0.02 Impression/Plan Impression/Plan Impression/Plan: Impression 77-year-old man * Acute exacerbation of COPD improving * Streptococcal community-acquired pneumonia positive by bacterial antigen, patchy infiltrate in the right lung and small right pleural effusion * History of lung cancer Plan -cont ceftriaxone, augmentin can be used for dc planning -would add prednisone 40mg po x 5 days -trc/nebs -dc planning 24-48 hrs DVT prophylaxis at all times
[2017-12-25 15:08] VITALS: BP 100/65
[2017-12-25 22:49] VITALS: BP 122/60
--- NOTE | 2017-12-26 07:28 | PN- Housestaff ---
See Addendum Subjective Follow-up For: CAP Subjective: No overnight events. Didn't sleep well, up a lot. Breathing is slightly improved but he is coughing a lot, especially when getting up and moving. CP is on and off. Review of Systems Constitutional: Reports: no symptoms. EENTM: Reports: no symptoms. Cardiovascular: Reports: see HPI. Respiratory: Reports: see HPI. Gastrointestinal: Reports: no symptoms. Genitourinary: Reports: no symptoms. Musculoskeletal: Reports: no symptoms. Skin: Reports: no symptoms. Neurological/Psychological: Reports: no symptoms. Hematologic/Endocrine: Reports: no symptoms. Immunologic/Allergic: Reports: no symptoms. Objective Last 24 Hrs of Vital Signs/I&O Vital Signs Date Time Temp Pulse Resp B/P B/P Pulse O2 O2 Flow FiO2 Mean Ox Delivery Rate 12/26 0000 94 Nasal 1.0L Cannula 12/25 2249 98.0 67 18 122/60 94 Nasal Cannula 12/25 2040 93 Nasal 1.0L Cannula 12/25 1600 Nasal 1.0L Cannula 12/25 1508 98.0 68 18 100/65 97 12/25 0800 96 Nasal 1.0L Cannula Intake & Output 12/26 0800 12/26 0000 12/25 1600 Intake Total 400 700 Output Total 600 450 Balance -200 250 Intake, Oral 400 700 Number 0 Bowel Movements Output, Urine 600 450 Patient 54.998 kg Weight Physical Exam General Appearance: Alert, Oriented X3, Cooperative, No Acute Distress Cardiovascular: Regular Rate, Normal S1, Normal S2 Lungs: mild crackles and wheezing Abdomen: Normal Bowel Sounds, Soft, No Tenderness Neurological: Normal Speech Extremities: No Edema, Normal Pulses, No Tenderness/Swelling Current Medications: Current Medications Sig/Nadya Start time Last Medication Dose Route Stop Time Status Admin Albuterol Sulfate 3 ML TID 12/22 2200 AC 12/25 INH 2039 Aspirin Buffered 325 MG DAILY 12/23 1000 AC 12/25 PO 1015 Atorvastatin Calcium 80 MG DAILY 12/23 1000 AC 12/25 PO 1015 Benzocaine/Menthol 1 SYLVIA Q2P PRN 12/22 2215 AC 12/25 PO 2331 Calcium Carbonate 650 MG 4 TIMES/DAY PRN 12/25 0815 AC PO Ceftriaxone Sodium 1,000 MG DAILY@1700 12/23 1700 AC 12/25 IV 1726 Enoxaparin Sodium 40 MG DAILY 12/23 1000 AC 12/25 SC 1015 Guaifenesin 600 MG Q12 12/23 1000 AC 12/25 PO 2035 Oxycodone/ 2 TAB Q12 PRN 12/22 1915 DC Acetaminophen PO Prednisone 40 MG DAILY 12/25 1306 AC 12/25 PO 12/29 1001 1726 Vitamin A/Vitamin D 1 PARMINDER BID 12/25 1010 AC 12/25 TOP 2036 Assessment/Plan Assessment: 77 year old man with a history of HLD, NSCLC s/p lobectomy, CAD s/p BMS LAD, and hyperlipidemia presented to emergency department with chest congestion productive cough and shortness of breath admitted for community-acquired pneumonia. Problem list: 1. Strepococcus pneumoniae pneumonia 2. Chest pain 3. Xeroderma #Strepococcus pneumoniae pneumonia: Patient recently thought he had the flu and then presented on Monday with shortness of breath and cough. Streptococcus pneumoniae urine antigen was positive. -Continue ceftriaxone, day 5/5 -Continue guaifenesin -Continue benzocaine/menthol -Continue albuterol -Appreciate pulmonology recommendations -Continue prednisone 40 mg daily, day 2/5 -PT evaluation -Benzonatate #Chest pain: Patient was complaining of chest pain earlier this morning. See event note. EKG and troponin 1 negative. He thinks that he was most likely heartburn. TTE in March 2017 showed normal EF with stage I diastolic dysfunction. 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 -Vitamin A/D ointment #Chronic medical problems: -Continue home atorvastatin and aspirin DVT prophylaxis with enoxaparin Heart healthy diet Full code Problem List: 1. Streptococcus pneumoniae Pain Ratin Pain Location: no Pain Goal: Remain pain free Pain Plan: see a/p Tomorrow's Labs & Rationales: no
[2017-12-26 07:31] VITALS: BP 110/60
[2017-12-26] MEDS ORDERED: PREDNISONE20 M1 PO (07:37)
--- NOTE | 2017-12-26 07:39 | Patient Discharge Instructions ---
Discharge Instructions General Discharge Information You were seen/treated for: Streptococcus pneumoniae pneumonia Watch for these problems: Fever, chest pain, shortness of breath Special Instructions: Please take all medications as directed. Please follow-up with pulmonology and primary care Diet Continue normal diet: Yes Activity Full Activity/No Limits: Yes Acute Coronary Syndrome Inclusion Criteria At DC or during hospital stay patient has or had the following: ACS DIAGNOSIS No Discharge Core Measures Meds if any: Prescribed or Continued at Discharge Meds if any: NOT Prescribed or Continued at Discharge Congestive Heart Failure Inclusion Criteria At DC or during hospital stay patient has or had the following: CHF DIAGNOSIS No Discharge Core Measures Meds if any: Prescribed or Continued at Discharge Meds if any: NOT Prescribed or Continued at Discharge Cerebrovascular accident Inclusion Criteria At DC or during hospital stay patient has or had the following: CVA/TIA Diagnosis No Discharge Core Measures Meds if any: Prescribed or Continued at Discharge Meds if any: NOT Prescribed or Continued at Discharge Venous thromboembolism Inclusion Criteria VTE Diagnosis No VTE Type NONE VTE Confirmed by (Test) NONE Discharge Core Measures - Per Current guidelines, there needs to be overlap - treatment for the first 5 days of Warfarin therapy. - If discharged on Warfarin prior to 5 days of - overlap therapy, the patient will need to be - assessed for post discharge needs including - *Post discharge parental anticoagulation - *Warfarin and/or parental anticoagulation education - *Follow up date to check INR post discharge At least 5 days overlap therapy as Inpatient No Meds if any: Prescribed or Continued at Discharge Note: Overlap Therapy is Warfarin and Anticoagulant Meds if any: NOT Prescribed or Continued at Discharge
--- NOTE | 2017-12-26 11:02 | PN- Pulmonary ---
Subjective HPI/Critical Care Issues: pt seen and examined labored breathing with conversation at rest on room air 88% Objective Current Medications: Current Medications Sig/Nadya Start time Last Medication Dose Route Stop Time Status Admin Albuterol Sulfate 3 ML TID 12/22 2200 AC 12/26 INH 0836 Aspirin Buffered 325 MG DAILY 12/23 1000 AC 12/26 PO 1013 Atorvastatin Calcium 80 MG DAILY 12/23 1000 AC 12/26 PO 1013 Benzocaine/Menthol 1 SYLVIA Q2P PRN 12/22 2215 AC 12/25 PO 2331 Benzonatate 100 MG TIDPRN PRN 12/26 0745 AC PO Calcium Carbonate 650 MG 4 TIMES/DAY PRN 12/25 0815 AC PO Ceftriaxone Sodium 1,000 MG DAILY@1700 12/23 1700 AC 12/25 IV 1726 Enoxaparin Sodium 40 MG DAILY 12/23 1000 AC 12/26 SC 1013 Guaifenesin 600 MG Q12 12/23 1000 AC 12/26 PO 1013 Prednisone 40 MG DAILY 12/25 1306 AC 12/26 PO 12/29 1001 1013 Vitamin A/Vitamin D 1 PARMINDER BID 12/25 1010 AC 12/26 TOP 1014 Vital Signs & I&O Last 24 Hrs of Vitals and I&O: Vital Signs Date Time Temp Pulse Resp B/P B/P Pulse O2 O2 Flow FiO2 Mean Ox Delivery Rate 12/26 0844 92 Nasal 1.0L Cannula 12/26 0800 96 Nasal 1.0L Cannula 12/26 0731 97.8 69 18 110/60 95 Nasal 1.0L Cannula 12/26 0000 94 Nasal 1.0L Cannula 12/25 2249 98.0 67 18 122/60 94 Nasal Cannula 12/25 2040 93 Nasal 1.0L Cannula 12/25 1600 Nasal 1.0L Cannula 12/25 1508 98.0 68 18 100/65 97 Intake & Output 12/26 1600 12/26 0800 12/26 0000 Intake Total 400 Output Total 325 300 600 Balance -325 -300 -200 Intake, Oral 400 Number 1 0 Bowel Movements Output, Urine 325 300 600 Exam Other Physical Findings: Generally - Awake, alert and comfortable without distress Head and neck - normocephalic, atraumatic, EOMI grossly intact Cardiovascular - S1, S2, no murmurs, rubs or gallops Lungs -bilateral scattered rhonchi Abdomen - Bowel sounds positive, soft, non-tender Extremities - without edema Impression/Plan Impression/Plan Impression/Plan: Impression 77-year-old man * Acute exacerbation of COPD improving * Streptococcal community-acquired pneumonia positive by bacterial antigen, patchy infiltrate in the right lung and small right pleural effusion * History of lung cancer Plan -1 week of abx -prednisone 40mg po x 5 days -trc/nebs -dc planning 24 hrs -check ambulatory o2 sat DVT prophylaxis at all times
[2017-12-26 13:59] VITALS: BP 120/70
[2017-12-26 14:51] VITALS: BP 110/65
[2017-12-26 22:31] VITALS: BP 106/60
[2017-12-27 06:44] VITALS: BP 110/60
--- NOTE | 2017-12-27 08:23 | PN- Housestaff ---
Lamine GUZMAN,Julio César 12/27/17 0822: Subjective Follow-up For: CAP Subjective: No overnight events. His breathing feels about the same, coughing a little less. No CP. Review of Systems Constitutional: Reports: no symptoms. EENTM: Reports: no symptoms. Cardiovascular: Reports: no symptoms. Respiratory: Reports: see HPI. Gastrointestinal: Reports: no symptoms. Genitourinary: Reports: no symptoms. Musculoskeletal: Reports: no symptoms. Skin: Reports: no symptoms. Neurological/Psychological: Reports: no symptoms. Hematologic/Endocrine: Reports: no symptoms. Immunologic/Allergic: Reports: no symptoms. Objective Last 24 Hrs of Vital Signs/I&O Vital Signs Date Time Temp Pulse Resp B/P B/P Pulse O2 O2 Flow FiO2 Mean Ox Delivery Rate 12/27 0644 98.0 56 20 110/60 93 Nasal 1.0L Cannula 12/27 0000 Nasal 1.0L Cannula 12/26 2231 98.6 86 20 106/60 92 Nasal Cannula 12/26 1926 93 Nasal 1.0L Cannula 12/26 1600 97 Nasal 1.0L Cannula 12/26 1451 98.2 71 18 110/65 97 12/26 1359 98.2 68 19 120/70 93 12/26 0844 92 Nasal 1.0L Cannula Intake & Output 12/27 1600 12/27 0800 12/27 0000 Intake Total 480 500 Output Total 900 225 Balance -420 275 Intake, Oral 480 500 Output, Urine 900 225 Physical Exam General Appearance: Alert, Oriented X3, Cooperative, No Acute Distress Cardiovascular: Regular Rate, Normal S1, Normal S2 Lungs: mild wheezing Abdomen: Normal Bowel Sounds, Soft, No Tenderness Extremities: No Edema, Normal Pulses, No Tenderness/Swelling Current Medications: Current Medications Sig/Nadya Start time Last Medication Dose Route Stop Time Status Admin Albuterol Sulfate 3 ML TID 12/22 2200 AC 12/26 INH 1926 Aspirin Buffered 325 MG DAILY 12/23 1000 AC 12/26 PO 1013 Atorvastatin Calcium 80 MG DAILY 12/23 1000 AC 12/26 PO 1013 Benzocaine/Menthol 1 SYLVIA Q2P PRN 12/22 2215 AC 12/25 PO 2331 Benzonatate 100 MG TIDPRN PRN 12/26 0745 AC PO Calcium Carbonate 650 MG 4 TIMES/DAY PRN 12/25 0815 AC 12/26 PO 1730 Ceftriaxone Sodium 1,000 MG DAILY@1700 12/23 1700 AC 12/26 IV 1730 Enoxaparin Sodium 40 MG DAILY 12/23 1000 AC 12/26 SC 1013 Guaifenesin 600 MG Q12 12/23 1000 AC 12/26 PO 2114 Patient Medication 1 ED ONE ONE 12/26 1445 DC Teaching ED 12/26 1446 Prednisone 40 MG DAILY 12/25 1306 AC 12/26 PO 12/29 1001 1013 Vitamin A/Vitamin D 1 PARMINDER BID 12/25 1010 AC 12/26 TOP 2114 Assessment/Plan Assessment: 77 year old man with a history of HLD, NSCLC s/p lobectomy, CAD s/p BMS LAD, and hyperlipidemia presented to emergency department with chest congestion productive cough and shortness of breath admitted for community-acquired pneumonia. Problem list: 1. Strepococcus pneumoniae pneumonia 2. Chest pain 3. Xeroderma #Strepococcus pneumoniae pneumonia: Patient recently thought he had the flu and then presented on Monday with shortness of breath and cough. Streptococcus pneumoniae urine antigen was positive. He desaturates to 85% off oxygen at rest and will likely need home oxygen. -Continue ceftriaxone, day 6/7 -Continue guaifenesin -Continue benzocaine/menthol -Continue albuterol -Appreciate pulmonology recommendations -Continue prednisone 40 mg daily, day 3/5 -PT evaluation -Benzonatate #Chest pain: Patient was complaining of chest pain earlier this morning. See event note. EKG and troponin 1 negative. He thinks that he was most likely heartburn. TTE in March 2017 showed normal EF with stage I diastolic dysfunction. 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 -Vitamin A/D ointment #Chronic medical problems: -Continue home atorvastatin and aspirin DVT prophylaxis with enoxaparin Heart healthy diet Full code Problem List: 1. Streptococcus pneumoniae Pain Ratin Pain Location: no pain Pain Goal: Remain pain free Pain Plan: see a/p Tomorrow's Labs & Rationales: no Neli Dang MD 12/27/17 1115: Attending MD Review Statement Attending Statement Attending MD Statement: examined this patient, discuss w/resident/PA/ENVIRONMENTAL PROPERTY ASSESSOR, agreed w/resident/PA/ENVIRONMENTAL PROPERTY ASSESSOR, reviewed EMR data (avail) Attending Assessment/Plan: 77M PMH HTN, NSCLC s/p partial lobectomy, CAD s/p PCI admitted overnight with RLL pneumonia with S.pneumo antigen positive, doing well today, comfortable, afebrile, vitals stable. Feels weak today, becomes SOB and has to rest just when walking to the bathroom. Desaturated to 88% on 2L at rest when speaking. 1. Streptococcal RLL pneumonia 2. COPD Exacerbation 3. Acute hypoxemic respiratory failure Plan - Continue on general medicine - Continue Ceftriaxone - Follow pulmonary recommendations - Continue Prednisone - Follow cultures - Continue home medications - DVT PPx - PT eval for discharge planning
--- NOTE | 2017-12-27 11:20 | PN- Pulmonary ---
Subjective HPI/Critical Care Issues: Patient seen and examined this morning. He appears to be still dyspneic with exertion and has desaturated below 88% on room air. Objective Current Medications: Current Medications Sig/Nadya Start time Last Medication Dose Route Stop Time Status Admin Albuterol Sulfate 3 ML TID 12/22 2200 AC 12/27 INH 0843 Aspirin Buffered 325 MG DAILY 12/23 1000 AC 12/27 PO 0832 Atorvastatin Calcium 80 MG DAILY 12/23 1000 AC 12/27 PO 0824 Benzocaine/Menthol 1 SYLVIA Q2P PRN 12/22 2215 AC 12/27 PO 1110 Benzonatate 100 MG TIDPRN PRN 12/26 0745 AC 12/27 PO 0824 Calcium Carbonate 650 MG 4 TIMES/DAY PRN 12/25 0815 AC 12/27 PO 0824 Ceftriaxone Sodium 1,000 MG DAILY@1700 12/23 1700 AC 12/26 IV 1730 Enoxaparin Sodium 40 MG DAILY 12/23 1000 AC 12/27 SC 0823 Guaifenesin 600 MG Q12 12/23 1000 AC 12/27 PO 0832 Patient Medication 1 ED ONE ONE 12/27 1115 DC 12/27 Teaching ED 12/27 1116 1110 Patient Medication 1 ED ONE ONE 12/26 1445 DC Teaching ED 12/26 1446 Prednisone 40 MG DAILY 12/25 1306 AC 12/27 PO 12/29 1001 0824 Vitamin A/Vitamin D 1 PARMINDER BID 12/25 1010 AC 12/27 TOP 0832 Vital Signs & I&O Last 24 Hrs of Vitals and I&O: Vital Signs Date Time Temp Pulse Resp B/P B/P Pulse O2 O2 Flow FiO2 Mean Ox Delivery Rate 12/27 1016 89 Nasal 1.0L Cannula 12/27 1015 85 Room Air 12/27 1015 90 Room Air 12/27 1015 92 Nasal 1.0L Cannula 12/27 0916 92 Nasal 1.0L Cannula 12/27 0800 Nasal 1.0L Cannula 12/27 0644 98.0 56 20 110/60 93 Nasal 1.0L Cannula 12/27 0000 Nasal 1.0L Cannula 12/26 2231 98.6 86 20 106/60 92 Nasal Cannula 12/26 1926 93 Nasal 1.0L Cannula 12/26 1600 97 Nasal 1.0L Cannula 12/26 1451 98.2 71 18 110/65 97 12/26 1359 98.2 68 19 120/70 93 Intake & Output 12/27 1600 12/27 0800 12/27 0000 Intake Total 480 500 Output Total 900 225 Balance -420 275 Intake, Oral 480 500 Output, Urine 900 225 Exam Other Physical Findings: Generally - Awake, alert and comfortable without distress Head and neck - normocephalic, atraumatic, EOMI grossly intact Cardiovascular - S1, S2, no murmurs, rubs or gallops Lungs -bilateral scattered rhonchi Abdomen - Bowel sounds positive, soft, non-tender Extremities - without edema Impression/Plan Impression/Plan Impression/Plan: Impression 77-year-old man * Acute exacerbation of COPD improving * Streptococcal community-acquired pneumonia positive by bacterial antigen, patchy infiltrate in the right lung and small right pleural effusion * History of lung cancer Plan -1 week of abx -PT evaluation -prednisone 40mg po x 5 days -trc/nebs -dc planning/PT eval -qualifies for o2, 86% on ra DVT prophylaxis at all times
[2017-12-27 14:25] VITALS: BP 130/80
--- NOTE | 2017-12-27 15:10 | Discharge Summary ---
See Addendum Visit Information Visit Dates Admission Date: 12/22/17 Discharge Date: 12/28/17 Hospital Course Course Attending Physician: Neli Dang MD Primary Care Physician: Senthil Virk MD Hospital Course: 77 year old man with a history of HLD, NSCLC s/p lobectomy, CAD s/p BMS LAD, and hyperlipidemia presented to emergency department with chest congestion productive cough and shortness of breath admitted for community-acquired pneumonia. Admission Data: Vitals: T max 98.6, pulse 70s, RR 18, blood pressure 133/89, saturating well on 2 L nasal cannula On exam: A O 3, cooperative, no acute distress, neck supple, JVD normal, no lymphadenopathy, mucosa dry, no focal neurological deficit except chronic left lower extremity weakness 4-/5, no dependent edema, no obvious skin rashes or inflammation CVS: S1-S2, RRR. RS: Significant crackles on right base. Abdomen: Soft, NT, ND, bowel sounds present. CTA chest: 1. No evidence of pulmonary embolism. 2. Severe emphysematous changes of lungs. 3. Patchy parenchymal infiltrate in right lung with small right pleural effusion. He was admitted to general medicine and treated for following problems: 1. Strepococcus pneumoniae pneumonia 2. Chest pain 3. Xeroderma #Strepococcus pneumoniae pneumonia: Patient recently thought he had the flu and then presented with shortness of breath and cough. Streptococcus pneumoniae urine antigen was positive. He was started on ceftriaxone and received 7 days of treatment as well as guaifenesin, albuterol, and steroid taper. Pulmonology was consulted and made recommendations. Oxygen was attempted to be tapered but he continued to desaturate to 82% while ambulating on the last day of admission. He is being prescribed home oxygen and will follow up with Dr. Perez. #Chest pain: Patient was complaining of chest pain. EKG and troponin 1 negative. He thinks that he was most likely heartburn. TTE in March 2017 showed normal EF with stage I diastolic dysfunction. His chest pain did not recur after this. It was most likely due to heartburn. #Xeroderma: Patient has very dry skin on legs. He was started on vitamin A/D ointment. #Chronic medical problems: He was continued on his home medications. Allergies: Coded Allergies: Penicillins (HIVES 08/07/17) Disposition Summary Disposition Principal Diagnosis: 1. Strepococcus pneumoniae pneumonia Additional Diagnosis: 2. Chest pain 3. Xeroderma Discharge Disposition: home or self care Discharge Instructions General Discharge Information Code Status: Full Code Patient's Diet: Heart healthy Patient's Activity: As tolerated Follow-Up Instructions/Appts: Please take all medications as directed. Please follow-up with Dr. Perez as directed. Please follow-up with primary care. Medications at Discharge Discharge Medications: Stop taking the following medications: Clopidogrel Bisulfate (Plavix) 75 MG TABLET ORAL DAILY [Benadryl] 25 MG TAB ORAL EVERY SIX HOURS NEEDED as needed for ITCHING Continue taking these medications: Aspirin (Ecotrin*) 81 MG TABLET. 1 Tablet ORAL DAILY Qty = 60 Comments: Last Taken: 12/28/17 Time: 9:00 am Atorvastatin Calcium (Lipitor) 40 MG TABLET 1 Tablet ORAL DAILY Qty = 60 Comments: Last Taken: 12/28/17 Time: 9 am Start taking the following new medications: Prednisone (Prednisone) 20 MG TABLET 40 Milligram ORAL DAILY Qty = 1 No Refills Instructions: Please take until 12/29/17, then stop. Comments: Last Taken: 12/28/17 Time: 9:00 am Copies To: Bo Perez MD; Moose GUZMAN,Senthil Osorio Last Taken: 11/26/14 Time: 930 AM Start taking the following new medications: Prednisone (Prednisone) 20 MG TABLET 40 Milligram ORAL DAILY Qty = 1 No Refills Instructions: Please take until 12/29/17, then stop. Copies To: Karen Perez MD, MD, Joel S.
[2017-12-27 21:49] VITALS: BP 110/60
[2017-12-28 07:20] VITALS: BP 98/60
--- NOTE | 2017-12-28 08:01 | PN- Housestaff ---
See Addendum Subjective Follow-up For: CAP Subjective: No overnight events. Breathing is improving, as is coughing. Review of Systems Constitutional: Reports: no symptoms. EENTM: Reports: no symptoms. Cardiovascular: Reports: no symptoms. Respiratory: Reports: see HPI. Gastrointestinal: Reports: no symptoms. Genitourinary: Reports: no symptoms. Musculoskeletal: Reports: no symptoms. Skin: Reports: no symptoms. Neurological/Psychological: Reports: no symptoms. Hematologic/Endocrine: Reports: no symptoms. Immunologic/Allergic: Reports: no symptoms. Objective Last 24 Hrs of Vital Signs/I&O Vital Signs Date Time Temp Pulse Resp B/P B/P Pulse O2 O2 Flow FiO2 Mean Ox Delivery Rate 12/28 0720 98.0 52 20 98/60 96 Nasal 2.0L Cannula 12/28 0000 92 Nasal 1.0L Cannula 12/27 2149 98.1 73 20 110/60 92 12/27 2011 94 Nasal 1.0L Cannula 12/27 1600 Nasal 1.0L Cannula 12/27 1425 98.5 78 20 130/80 95 12/27 1215 Nasal 1.0L Cannula 12/27 1201 Nasal 1.0L Cannula 12/27 1016 89 Nasal 1.0L Cannula 12/27 1015 85 Room Air 12/27 1015 90 Room Air 12/27 1015 92 Nasal 1.0L Cannula 12/27 0916 92 Nasal 1.0L Cannula Intake & Output 12/28 1600 12/28 0800 12/28 0000 Intake Total 750 Output Total 525 300 Balance -525 450 Intake, IV 20 Intake, Oral 730 Output, Urine 525 300 Physical Exam General Appearance: Alert, Oriented X3, Cooperative, No Acute Distress Cardiovascular: Regular Rate, Normal S1, Normal S2 Lungs: mild crackles Abdomen: Normal Bowel Sounds, Soft, No Tenderness Neurological: Normal Speech Extremities: No Edema, Normal Pulses Current Medications: Current Medications Sig/Nadya Start time Last Medication Dose Route Stop Time Status Admin Albuterol Sulfate 3 ML TID 12/22 2199 AC 12/27 INH 1956 Aspirin Buffered 325 MG DAILY 12/23 1000 AC 12/27 PO 0832 Atorvastatin Calcium 80 MG DAILY 12/23 1000 AC 12/27 PO 0824 Benzocaine/Menthol 1 SYLVIA Q2P PRN 12/22 2215 AC 12/27 PO 1110 Benzonatate 100 MG TIDPRN PRN 12/26 0745 AC 12/27 PO 0824 Calcium Carbonate 650 MG 4 TIMES/DAY PRN 12/25 0815 AC 12/27 PO 0824 Ceftriaxone Sodium 1,000 MG DAILY@1700 12/23 1700 DC 12/27 IV 1613 Enoxaparin Sodium 40 MG DAILY 12/23 1000 12/27 SC 0823 Guaifenesin 600 MG Q12 12/23 1000 AC 12/27 PO 2009 Melatonin 5 MG AT BEDTIME 12/28 2200 DC PO Melatonin 5 MG AT BEDTIME 12/28 0100 AC 12/28 PO 0053 Patient Medication 1 ED ONE ONE 12/27 1115 DC 12/27 Teaching ED 12/27 1116 1110 Prednisone 40 MG DAILY 12/25 1306 AC 12/27 PO 12/29 1001 0824 Vitamin A/Vitamin D 1 PARMINDER BID 12/25 1010 12/27 TOP 2009 Assessment/Plan Assessment: 77 year old man with a history of HLD, NSCLC s/p lobectomy, CAD s/p BMS LAD, and hyperlipidemia presented to emergency department with chest congestion productive cough and shortness of breath admitted for community-acquired pneumonia. Problem list: 1. Strepococcus pneumoniae pneumonia 2. Chest pain 3. Xeroderma #Strepococcus pneumoniae pneumonia: Patient recently thought he had the flu and then presented on Monday with shortness of breath and cough. Streptococcus pneumoniae urine antigen was positive. He desaturates to 82% off oxygen ambulating today and will need home oxygen. -Continue ceftriaxone, day 7/ -Continue guaifenesin -Continue benzocaine/menthol -Continue albuterol -Appreciate pulmonology recommendations -Continue prednisone 40 mg daily, day 4/5 -PT evaluation -Benzonatate #Chest pain: Patient was complaining of chest pain earlier this morning. See event note. EKG and troponin 1 negative. He thinks that he was most likely heartburn. TTE in March 2017 showed normal EF with stage I diastolic dysfunction. 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 -Vitamin A/D ointment #Chronic medical problems: -Continue home atorvastatin and aspirin DVT prophylaxis with enoxaparin Heart healthy diet Full code Problem List: 1. Streptococcus pneumoniae Pain Ratin Pain Location: no Pain Goal: Remain pain free Pain Plan: see a/p Tomorrow's Labs & Rationales: no
[2017-12-28] MEDS ORDERED: PREDNISONE20 M1 PO ×2 (08:39→12:23)
--- NOTE | 2017-12-28 09:41 | PN- Pulmonary ---
Subjective HPI/Critical Care Issues: pt seen and examined afebrile 93% on 1LNC Objective Current Medications: Current Medications Sig/Nadya Start time Last Medication Dose Route Stop Time Status Admin Albuterol Sulfate 3 ML TID 12/22 2200 AC 12/28 INH 0800 Aspirin Buffered 325 MG DAILY 12/23 1000 AC 12/28 PO 0810 Atorvastatin Calcium 80 MG DAILY 12/23 1000 AC 12/28 PO 0810 Benzocaine/Menthol 1 SYLVIA Q2P PRN 12/22 2215 AC 12/28 PO 0810 Benzonatate 100 MG TIDPRN PRN 12/26 0745 AC 12/27 PO 0824 Calcium Carbonate 650 MG 4 TIMES/DAY PRN 12/25 0815 AC 12/27 PO 0824 Ceftriaxone Sodium 1,000 MG DAILY@1700 12/23 1700 DC 12/27 IV 1613 Enoxaparin Sodium 40 MG DAILY 12/23 1000 AC 12/28 SC 0811 Guaifenesin 600 MG Q12 12/23 1000 AC 12/27 PO 2010 Melatonin 5 MG AT BEDTIME 12/28 2200 DC PO Melatonin 5 MG AT BEDTIME 12/28 0100 AC 12/28 PO 0053 Patient Medication 1 ED ONE ONE 12/27 1115 DC 12/27 Teaching ED 12/27 1116 1110 Prednisone 40 MG DAILY 12/25 1306 AC 12/28 PO 12/29 1001 0810 Vitamin A/Vitamin D 1 PARMINDER BID 12/25 1010 AC 12/28 TOP 0811 Vital Signs & I&O Last 24 Hrs of Vitals and I&O: Vital Signs Date Time Temp Pulse Resp B/P B/P Pulse O2 O2 Flow FiO2 Mean Ox Delivery Rate 12/28 0845 93 Nasal 1.0L Cannula 12/28 0800 Nasal 1.0L Cannula 12/28 0720 98.0 52 20 98/60 96 Nasal 2.0L Cannula 12/28 0000 92 Nasal 1.0L Cannula 12/27 2149 98.1 73 20 110/60 92 12/27 2010 94 Nasal 1.0L Cannula 12/27 1600 Nasal 1.0L Cannula 12/27 1425 98.5 78 20 130/80 95 12/27 1215 Nasal 1.0L Cannula 12/27 1201 Nasal 1.0L Cannula 12/27 1016 89 Nasal 1.0L Cannula 12/27 1015 85 Room Air 12/27 1015 90 Room Air 12/27 1015 92 Nasal 1.0L Cannula Intake & Output 12/28 1600 12/28 0800 12/28 0000 Intake Total 200 750 Output Total 525 300 Balance -325 450 Intake, IV 20 Intake, Oral 200 730 Output, Urine 525 300 Exam Other Physical Findings: Generally - Awake, alert and comfortable without distress Head and neck - normocephalic, atraumatic, EOMI grossly intact Cardiovascular - S1, S2, no murmurs, rubs or gallops Lungs -bilateral scattered rhonchi Abdomen - Bowel sounds positive, soft, non-tender Extremities - without edema Impression/Plan Impression/Plan Impression/Plan: Impression 77-year-old man * Acute exacerbation of COPD improving * Streptococcal community-acquired pneumonia positive by bacterial antigen, patchy infiltrate in the right lung and small right pleural effusion * History of lung cancer Plan -1 week of abx total -DC today to home, eval for home o2 - ambulatory sats -prednisone as ordered -trc/nebs DVT prophylaxis at all times
[2017-12-28] MEDS ORDERED: VALIUM5 M2 PO (14:40)
== END 2017-12-28 15:36 | disposition home health service (06) | DRG 193 ==
LOC: ERH 14:29 → ERHI 18:45 → 2NA 18:45 → ENRESERV 19:08 → ENTRNSPT 20:50 → EDTRNSPTSTS 21:06 → 2NA 21:25 → CMPTRNSPT 21:30 → 2NA 12-25 09:47 → ENPENDDIS 12-28 12:39 → ENTRNSPT 12-28 15:17 → CMPTRNSPT 12-28 15:31 → 2NA 12-28 15:36
PROVIDERS: Physician Assistant Medical; Radiology Vascular & Interventional Radiology; Student in an Organized Health Care Education/Training Program
DX: J13 Pneumonia due to Streptococcus pneumoniae (principal); J96.01 Acute respiratory failure with hypoxia; J44.0 Chronic obstructive pulmonary disease with (acute) lower respiratory infection; E44.0 Moderate protein-calorie malnutrition; J44.1 Chronic obstructive pulmonary disease with (acute) exacerbation; Z68.1 Body mass index [BMI] 19.9 or less, adult; E78.5 Hyperlipidemia, unspecified; L85.0 Acquired ichthyosis; I25.10 Atherosclerotic heart disease of native coronary artery without angina pectoris; D47.3 Essential (hemorrhagic) thrombocythemia; Z95.5 Presence of coronary angioplasty implant and graft; Z85.118 Personal history of other malignant neoplasm of bronchus and lung; F17.210 Nicotine dependence, cigarettes, uncomplicated
CPT/HCPCS: 2NAP; 36415; 36592; 71046; 81001; 82436; 87040; 87070; 87449; 87450; 87804; 87804-59; 93005; 93010; 96365; 96375; 97116-GO; 97161-GP; J0131; J0456; J0696; J1650; J7040; J7060